=== PATIENT | male | born 1980 | race Caucasian/White ===

== ENCOUNTER 2017-10-20 08:39 | Emergency (ER) | payer MEDICAID ==
[~2017-10-20] VITALS: Ht 170.2 cm; Wt 79.3 kg
[2017-10-20] MEDS ORDERED: CLON0.1T PO (08:52)
[2017-10-20] MEDS ORDERED: DIPH25CA83 PO (08:52)
[2017-10-20] MEDS ORDERED: LOPE2TAB26 PO (08:52)
[2017-10-20 08:58] LABS: BASOPHILS % 0.7 % (0.0-2.0); EOSINOPHILS % 1.9 % (0.0-5.0); HEMATOCRIT. 34.8 % (42.0-52.0); HEMOGLOBIN. 11.7 g/dL (14.0-18.0); MEAN CORPUSCULAR HEMOGLOBIN 30.8 pg (28.0-32.0); MEAN CORPUSCULAR VOLUME 91.9 fL (80.0-94.0); MEAN PLATELET VOLUME 9.5 fl (7.4-10.4); MONOCYTES % 7.9 % (2.0-8.0); NEUTROPHILS % 76.5 % (40.0-76.0); PLATELET 106 x1000/uL (130-400); RED BLOOD CELL COUNT 3.79 mill/uL (4.7-6.1)
[2017-10-20 09:06] LABS: PROTHROMBIN TIME 10.7 sec (9.4-11.6)
[2017-10-20] MEDS ORDERED: ONDANSETRON HCL 4MG/2ML VIAL IV ONE (09:15)
[2017-10-20 09:20] LABS: CARBON DIOXIDE 27 mEq/L (21-32); CHLORIDE 96 mEq/L (98-107); ETHANOL BLOOD < 10 mg/dL; TROPONIN I < 0.02 ng/mL (0.00-0.04)
[2017-10-20] MEDS ORDERED: ALTEPLASE IV STA (09:21)
[2017-10-20] MEDS ORDERED: ALTEPLASE 100MG/VIAL IV STA (09:21)
[2017-10-20] MEDS ORDERED: LABETALOL 5MG/ML SYR 20 MG/4 ML SYRINGE IV ONE (09:45)
[2017-10-20 11:03] VITALS: BP 172/91
[2017-10-20] MEDS ORDERED: ACETAMINOPHEN 325MG TABLET PO ONE (11:15)
== END 2017-10-20 11:25 | disposition short-term general hospital (02) ==
LOC: ER 08:46 → EDBEDREQSVC 08:47 → ENRESERV 09:15 → CANRESERV 09:15 → ER 11:25 → CANBEDREQ 15:37
DX: I63.9 Cerebral infarction, unspecified (principal); E11.22 Type 2 diabetes mellitus with diabetic chronic kidney disease; N18.6 End stage renal disease; Z99.2 Dependence on renal dialysis; R29.810 Facial weakness
CPT/HCPCS: 36415; 70450; 71010; 80053; 82962; 84484; 85025; 85610; 85730; 93005; 96374; 96375; 99291; G0482; J2405; J2997; J3490

== ENCOUNTER 2019-04-09 11:05 | Inpatient (IN) | payer MEDICAID ==
[~2019-04-09] VITALS: Ht 172.7 cm; Wt 79.4 kg
[~2019-04-09 11:05] MED LIST: CLON0.1T PO; DIPH25CA83 PO; LOPE2TAB26 PO
[2019-04-09] MEDS ORDERED: ONDANSETRON HCL 4MG/2ML INJ IV STA ×2 (11:28→12:22)
[2019-04-09] MEDS ORDERED: MORPHINE SULFATE 4 MG/ML CPJ (NOT FOR IM USE) IV STA ×2 (11:28→12:22)
[2019-04-09 11:38] LABS: CHLORIDE 97 mEq/L (98-107)
[2019-04-09 11:39] LABS: BASOPHILS % 0.6 % (0.0-2.0); EOSINOPHILS % 1.1 % (0.0-5.0); HEMOGLOBIN. 13.1 g/dL (14.0-18.0); LYMPHOCYTES % 8.5 % (20.0-50.0); MEAN CORPUSCULAR HEMOGLOBIN 30.6 pg (28.0-32.0); MEAN PLATELET VOLUME 8.1 fl (7.4-10.4); MONOCYTES % 7.7 % (2.0-8.0); NEUTROPHILS % 82.1 % (40.0-76.0); PLATELET 116 x1000/uL (130-400); PROTHROMBIN TIME 10.7 sec (9.6-11.0); RED BLOOD CELL COUNT 4.29 mill/uL (4.7-6.1); RED CELL DISTRIBUTION WIDTH 17.8 % (11.6-14.6)
[2019-04-09] MEDS ORDERED: HYDRALAZINE 20MG/ML VIAL IV NR (14:00)
[2019-04-09] MEDS ORDERED: NIFE60TA18 PO (20:57)
[2019-04-09] MEDS ORDERED: SEVE800T8 PO (20:57)
[2019-04-09] MEDS ORDERED: CALC667T2 PO (20:57)
[2019-04-09 21:00] VITALS: BP 145/93
[2019-04-09] MEDS ORDERED: ONDANSETRON HCL 4MG/2ML INJ IV PRN (21:45)
[2019-04-09] MEDS ORDERED: DEXTROSE 50% WATER 50ML SYRINGE IV PRN (22:00)
[2019-04-10] VITALS (7 sets, daily range): BP systolic 142–161; BP diastolic 81–89
[2019-04-10] MEDS: HYDRALAZINE 20MG/ML VIAL IV PRN (05:29)
[2019-04-10] MEDS: BLOOD SUGAR DIAGNOSTIC STRIP TEST SCH ×4 (05:32→21:23)
[2019-04-10 06:14] LABS: BASOPHILS % 0.5 % (0.0-2.0); HEMATOCRIT. 40.2 % (42.0-52.0); HEMOGLOBIN. 13.2 g/dL (14.0-18.0); LYMPHOCYTES % 23.5 % (20.0-50.0); MEAN CORPUSCULAR HEMOGLOBIN 30.3 pg (28.0-32.0); MEAN CORPUSCULAR VOLUME 92.1 fL (80.0-94.0); MEAN PLATELET VOLUME 8.7 fl (7.4-10.4); MONOCYTES % 9.6 % (2.0-8.0); NEUTROPHILS % 64.4 % (40.0-76.0); PLATELET 119 x1000/uL (130-400); RED BLOOD CELL COUNT 4.37 mill/uL (4.7-6.1); RED CELL DISTRIBUTION WIDTH 17.5 % (11.6-14.6)
[2019-04-10] MEDS: INSULIN LISPRO 100 UNITS/ML SUBCUT SCH ×4 (08:10→21:00)
[2019-04-10] MEDS ORDERED: ACETAMINOPHEN 325MG TABLET PO PRN (14:00)
[2019-04-10] MEDS ORDERED: CALC667T2 MT (16:00)
[2019-04-10] MEDS ORDERED: NIFE20CA PO (16:09)
[2019-04-11] VITALS: BP 142/86
[2019-04-11 04:00] VITALS: BP 162/88
[2019-04-11] MEDS: BLOOD SUGAR DIAGNOSTIC STRIP TEST SCH (06:08)
[2019-04-11] MEDS: HYDRALAZINE 20MG/ML VIAL IV PRN (06:46)
[2019-04-11] MEDS: INSULIN LISPRO 100 UNITS/ML SUBCUT SCH (07:58)
[2019-04-11 08:00] VITALS: BP 157/78
[2019-04-11] MEDS ORDERED: SEVELAMER CARBONATE 800 MG TABLET PO SCH (08:10)
[2019-04-11] MEDS ORDERED: CALCIUM ACETATE 667MG CAPSULE PO SCH (08:10)
[2019-04-11] MEDS ORDERED: NIFEDIPINE XL 60MG TAB PO SCH (09:00)
[2019-04-11] MEDS ORDERED: ENOXAPARIN 30MG/0.3ML SYR SUBCUT SCH (10:00)
[2019-04-11 11:55] VITALS: BP 138/79
[2019-04-11 11:59] VITALS: BP 138/79
== END 2019-04-11 13:08 | disposition home or self-care (01) | DRG 199 ==
LOC: ER 11:05 → 7WST 13:47 → ENRESERV 19:45
PROVIDERS: ADMIT Family Medicine; ATTEND Family Medicine
DX: I16.1 Hypertensive emergency (principal); I67.4 Hypertensive encephalopathy; E11.22 Type 2 diabetes mellitus with diabetic chronic kidney disease; E87.1 Hypo-osmolality and hyponatremia; N18.6 End stage renal disease; I12.0 Hypertensive chronic kidney disease with stage 5 chronic kidney disease or end stage renal disease; Z82.49 Family history of ischemic heart disease and other diseases of the circulatory system; Z83.3 Family history of diabetes mellitus; Z90.49 Acquired absence of other specified parts of digestive tract; Z99.2 Dependence on renal dialysis; Z79.899 Other long term (current) drug therapy
CPT/HCPCS: 36415; 71045; 80048; 82962; 83605; 93005; 96374; 96375; 96376; 99285; J0360; J1650; J2270; J2405